=== PATIENT | female | born 1995 | race Caucasian/White ===

== ENCOUNTER 2016-12-08 12:33 | Emergency (ER) ==
--- NOTE | 2016-12-08 13:07 | ED EKG INTERP ---
EKG Interpretation - EKG Time of EKG reading by physician:: 12:18 EKG Read and Signed by:: Danny Chun EKG Interpretation (*Must complete 3 of following elements*): Abnormal Rate: 115 Rhythm: sinus tachycardia Comments: otherwise normal ECG Attestation - Scribe Verification/Attestation Scribe:: Marquita Jean Acting as Scribe for:: Danny Chun Scribe documention review:: This chart was documented by a scribe and accurately reflects the service the provider performed and the decisions made by the provider.
[2016-12-08 13:28] LABS: MANUAL DIFF NEEDED? NO
[2016-12-08 13:34] LABS: BASO% 0.2 % (0.0-0.8); EOS# 0.02 X1000 (0.0-0.7); EOS% 0.2 % (0.0-10.0); HEMOGLOBIN 15.4 g/dL (12.0-16.0); LYMPH# 1.57 X1000 (1.2-3.4); LYMPH% 12.6 % (20.5-51.1); MCH 30.6 PG (27-31); MCHC 34.2 g/dL (33-37); MCV 89.5 FL (81-99); MONO# 1.07 X1000 (0.11-0.59); MONO% 8.6 % (1.7-9.3); MPV 10.3 FL (7.4-10.4); NEUT% 78.4 % (42.2-75.2); PLT 217 X1000 (130-400); RBC 5.03 XMIL (4.2-5.4)
[2016-12-08 13:58] LABS: ACETAMINOPHEN < 1.2 ug/mL (10-30); AGAP 12; ALBUMIN 4.6 g/dL (3.5-5.0); ALKALINE PHOSPHATASE 65 U/L (32-104); BUN 10 mg/dL (8-22); CALCIUM 9.4 mg/dL (8.8-10.2); CHLORIDE 99 mmol/L (98-107); COSMO 271; GOT 40 U/L (10-30); GPT 15 U/L (10-36); POTASSIUM 3.4 mmol/L (3.5-5.1); SODIUM 136 mmol/L (136-145); TCO2 25 mmol/L (25-35); TOTAL BILIRUBIN 0.26 mg/dL (0.20-1.00); TOTAL PROTEIN 7.5 g/dL (6.3-8.3)
--- NOTE | 2016-12-08 14:20 | PROVIDER DOCUMENTATION ---
HPI-Psychological Disorder - General Source: patient - History of Present Illness-Psych Onset/Duration: reports: 1-3 hours ago Timing: reports: still present Severity: reports: moderate Situational problems related to:: reports: spouse, daughter Psychiatric Complaints: reports: depressed, impaired concentration. denies: angry, agitated, altered mental status, anxiety, confused, frustrated, hallucinating, hostile, homicidal thoughts, ingestion, injury, insomnia, irritability, paranoid, , rapid pulse, restlessness, suicidal ideation, tremor Substance Use: reports: opiates, other (methadone, methamphetamine, and heroin) Patient arrived by:: private car Similar Symptoms Previously?: Yes Recently seen or treated by another doctor?: No <Marquita Jean - Last Filed: 12/08/16 15:02> <Danny Chun - Last Filed: 12/08/16 15:26> - General Chief Complaint: Overdose Stated Complaint: POSS OD Time Seen by Provider: 12/08/16 13:51 Allergies/Adverse Reactions: Patient Allergies Allergy/AdvReac Type Severity Reaction Status Date / Time aripiprazole [From Abilify] Allergy Severe muscle Verified 03/17/15 16:35 spasm Home Medications: Home Medication List Medication Instructions Recorded Confirmed Last Taken Type Methadone HCl [Methadose] 100 mg 12/13/15 12/13/15 12/13/15 History Buspirone [Buspar] 10 mg PO BID #20 tablet 06/23/16 Unknown Rx - History of Present Illness-Psych Nature of Presenting Problem: Pt is 21 y/o F presents to the ED with overdose. Pt states she recently got out detention. Pt states having 7 yr hx of addiction. Pt states taking methadone and percocets. Pt states after taking the meds she felt hot and passed out in the bathroom and told someone to take her to the ED. Pt states she is going through a divorce and recently had her daughter taken away. Pt states hx of subutex. 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 (Marquita Jean) Review of Systems - Adult - REVIEW OF SYSTEMS - ADULT Constitutional: reports: chills. denies: fever Eyes: denies: blurred vision, double vision Ears, Nose, Mouth & Throat: denies: ear pain, nose pain, throat pain Cardiovascular: reports: irregular heart rate (tachy). denies: chest pain, heart murmur Respiratory: denies: cough, shortness of breath, wheezing Gastrointestinal: reports: nausea, vomiting. denies: abdominal pain, diarrhea Genitourinary: denies: dysuria, hematuria Musculoskeletal: denies: bone pain, joint pain, neck pain Integumentary: denies: hives, itching Neurological: denies: dizziness/vertigo, headache/migraines Psychiatric: reports: no symptoms reported Endocrine: reports: no symptoms reported Hematologic/Lymphatic: reports: no symptoms reported Allergic/Immunologic: reports: no symptoms reported All Other Systems: Reviewed and Negative <Marquita Jean - Last Filed: 12/08/16 15:02> Past History - Adult - PAST MEDICAL HISTORY-ADULT Review of Records: reports: Nursing Assessment Review, Medications Reviewed, Social history reviewed & non-contributory. Major Childhood Illnesses: reports: denies history Cardiovascular: reports: denies history Respiratory: reports: denies history Gastrointestinal: reports: denies history Obstetrical/Gynecological: reports: denies history Genitourinary: reports: denies history Musculoskeletal: reports: denies history Neurological: reports: Seizures/Epilepsy Endocrine/Immune: reports: denies history Other Conditions: reports: denies history - PRIOR SURGERIES/PROCEDURES Surgical/Procedure History: reports: none - PRIOR HOSPITALIZATIONS Prior Hospitalizations: reports: none - IMMUNIZATION STATUS Childhood Immunizations: See Nurse Assessment Flu Vaccine: See Nurse Assessment - FAMILY HISTORY Family History: reviewed, not pertinent - SOCIAL HISTORY Smoking: cigarettes, greater than 1 pack/day Provider spent 3-5 mins advising pt. on dangers of tobacco.: Discussed manners to quit use, and f/u contacts for add'l counseling. Substance Use: opiates, other (methadone, methamphetamine, and heroin) Alcohol Use Frequency: occasionally Living Situation: family <Marquita Jean - Last Filed: 12/08/16 15:02> Physical Exam-Psych Focus - Physical Exam-Psych Initial Vital Signs Reviewed: Yes Appearance: no memory impairment, alert, disheveled, slow to respond Neurological: alert, calm, oriented x 3, depressed affect Behavior/Eye Contact/Speech: cooperative, decreased rate of speech Thoughts/Hallucinations: no apparent hallucination HENMT: normocephalic/atraumatic, TMs normal, pharynx normal. negative: moist mucous membranes (dry) Neck: non-tender, full range of motion, supple, normal inspection Respiratory: chest non-tender, lungs clear, normal breath sounds, no pleuratic chest pain, no respiratory distress, no accessory muscle use Cardiovascular: normal peripheral pulses, no edema, no gallop, no JVD, no murmur , tachycardia Abdominal Exam: normal bowel sounds, non tender, soft, no organomegaly, no pulsatile mass Lymphatic: no adenopathy Back Exam: normal inspection, no CVA tenderness, no vertebral tenderness Extremity: normal range of motion, non-tender, normal gait, normal inspection, no pedal edema, no calf tenderness, normal capillary refill Integumentary: normal color, normal turgor, warm/dry, other (puncture wounds to inner arms due to recent drug use) <Marquita Jean - Last Filed: 12/08/16 15:02> Progress <Marquita Jean - Last Filed: 12/08/16 15:02> <Danny Chun - Last Filed: 12/08/16 15:26> - PLAN OF CARE/RESULTS Progress/Plan/Lab Results: Laboratory Tests 12/08/16 12/08/16 12/08/16 13:16 13:16 13:16 WBC 12.43 H RBC 5.03 Hgb 15.4 Hct 45.0 MCV 89.5 MCH 30.6 MCHC 34.2 RDW Std Deviation 12.6 Plt Count 217 MPV 10.3 Neut % (Auto) 78.4 H Lymph % (Auto) 12.6 L [place] % (Auto) 8.6 Eos % (Auto) 0.2 Baso % (Auto) 0.2 Neut # (Auto) 9.75 H Lymph # (Auto) 1.57 [place] # (Auto) 1.07 H Eos # (Auto) 0.02 Baso # (Auto) 0.02 Sodium 136 Potassium 3.4 L Chloride 99 Carbon Dioxide 25 Anion Gap 12 BUN 10 Creatinine 0.7 Estimated GFR/1.73 m2 > 60 BUN/Creatinine Ratio 14 Glucose 103 Calculated Osmolality 271 Calcium 9.4 Total Bilirubin 0.26 AST 40 H ALT 15 Alkaline Phosphatase 65 Total Protein 7.5 Albumin 4.6 Globulin 2.9 Albumin/Globulin Ratio 1.6 Salicylates < 3.00 L Acetaminophen < 1.2 L Plasma/Serum Ethyl Alc Orders Category Date Time Status Cardiac Monitoring DIRECTED Care 12/08/16 13:08 Active ED: Urine Bedside ORDERED Care 12/08/16 13:07 Active Finger Stick Blood Sugar (ED) DIRECTED Care 12/08/16 13:08 Active Saline Loc DIRECTED Care 12/08/16 13:08 Active ACETAMINOPHEN [TDM] Stat Lab 12/08/16 13:16 Completed ALCOHOL BLOOD Stat Lab 12/08/16 13:16 Completed CBC WITH ELECTRONIC DIFF [HEME] Stat Lab 12/08/16 13:16 Completed COMPREHENSIVE METABOLIC PANEL [CHEM] Stat Lab 12/08/16 13:16 Completed SALICYLATES [TDM] Stat Lab 12/08/16 13:16 Completed URINE DRUG SCREEN Stat Lab 12/08/16 13:08 Uncollected Pulse Oximetry Stat Oth 12/08/16 13:08 Active EKG [EKG] Stat Ther 12/08/16 12:44 Ordered Vital Signs - 24 hr 12/08/16 12:51 Temperature 98.0 F Pulse Rate 133 H Respiratory 24 Rate Blood Pressure 154/99 O2 Sat by Pulse 100 Oximetry (Marquita Jean) Departure <Marquita Jean - Last Filed: 12/08/16 15:02> - Departure Time of Disposition Order: 15:25 Certified Medical Emergency: Urgent <Danny Chun - Last Filed: 12/08/16 15:26> - Departure DIAGNOSIS: Opiate abuse, continuous Disposition: HOME 01 Condition: Good Attestation - Scribe Verification/Attestation Scribe:: Marquita Jean Acting as Scribe for:: Danny Chun Scribe documention review:: This chart was documented by a scribe and accurately reflects the service the provider performed and the decisions made by the provider. <Marquita Jean - Last Filed: 12/08/16 15:02> Physician Attestation
[2016-12-08 15:19] LABS: UR AMPHETAMINES QUAL PRESUMPTIVE POSITIVE (NONE DETECT); UR BARBITUATES QUAL NONE DETECTED (NONE DETECT); UR BENZODIAZEPIN QUAL PRESUMPTIVE POSITIVE (NONE DETECT); UR CANNABINOIDS QUAL PRESUMPTIVE POSITIVE (NONE DETECT); UR COCAINE QUAL NONE DETECTED (NONE DETECT); UR METHADONE QUAL PRESUMPTIVE POSITIVE (NONE DETECT); UR OPIATES QUAL NONE DETECTED (NONE DETECT); UR OXYCODONE QUAL PRESUMPTIVE POSITIVE (NONE DETECT); UR PCP QUAL NONE DETECTED (NONE DETECT)
[2016-12-08 15:29] VITALS: BP 145/102
--- NOTE | 2016-12-09 10:02 | EKG Report ---
Test Performed on : 12/08/2016 12:48:18 PM Test Reason : od Blood Pressure : / mmHG Vent. Rate : 115 BPM Atrial Rate : 115 BPM P-R Int : 128 ms QRS Dur : 080 ms QT Int : 342 ms P-R-T Axes : 070 022 -21 degrees QTc Int : 473 ms Sinus tachycardia. Otherwise normal ECG When compared with ECG of 23-JUN-2009 14:48, PREVIOUS ECG IS PRESENT Unconfirmed Result
== END 2016-12-08 15:33 | disposition home or self-care (01) ==
LOC: ED 12:33
DX: F11.10 Opioid abuse, uncomplicated (principal); R94.31 Abnormal electrocardiogram [ECG] [EKG]; R68.83 Chills (without fever); R00.0 Tachycardia, unspecified; R11.2 Nausea with vomiting, unspecified; F17.210 Nicotine dependence, cigarettes, uncomplicated; Z71.6 Tobacco abuse counseling; S41.132A Puncture wound without foreign body of left upper arm, initial encounter; S41.131A Puncture wound without foreign body of right upper arm, initial encounter
CPT/HCPCS: 80053; 82948; 85025; 93005; G0480; 80320; 80324; 80329; 80345; 80346; 80349; 80353; 80358; 80361; 80365; 83992